=== PATIENT | female | born 1985 | race Caucasian/White ===

== ENCOUNTER 2024-01-05 17:05 | Emergency (ER) | payer OTHER, MEDICAID, SELFPAY ==
--- NOTE | 2024-01-05 17:07 | ED.DENTAL ---
HPI - Dental/Oral General Chief complaint: Dental/Oral Stated complaint: Dental/Right Eye Pain Time Seen by Provider: 01/05/24 17:06 Source: patient Mode of arrival: ambulatory Limitations: no limitations History of Present Illness HPI Narrative: Dorene is a 38-year-old female patient presenting to the clinic today with complaints of right upper gel dental pain. She reports she was eating last night and felt a sharp stabbing pain to the right upper maxilla around her wisdom to the and this caused her headache. Woke up this morning and has worsening of dental pain as well as swelling to the right cheek. Related Data Allergies Allergy/AdvReac Type Severity Reaction Status Date / Time No Known Allergies Allergy Mild Unverified 01/05/24 17:14 Review of Systems Review of Systems: Pertinent positives per HPI. Patient denies any fever, chills, rash, headache, visual changes, dizziness, cough, shortness of breath, chest pain, palpitations, nausea, vomiting, diarrhea, constipation, abdominal pain, or any urinary issues. PMFSH Comments At the time of my signature, I reviewed and agree with the nursing past medical, surgical, social, and family history. There is no relevant family history pertinent to the patient complaint. Exam Narrative: General: Well-developed, well nourished, in no apparent distress Head: Normocephalic, atraumatic Eyes: Pupils equally round and reactive to light bilaterally, EOM intact, sclera and conjunctive clear, no discharge, lids normal Ears: TMs intact and clear, ear canals clear, no drainage, grossly hearing normal. Nose: Nares patent, no discharge, no inflammation, no sinus tenderness. Mouth: Oral pharynx without lesions or masses, poor dentition, MMM. Inflamed right upper decayed wisdom tooth with gingival swelling and tenderness to palpation. No palpable abscess at this time however there is significant swelling to the cheek Neck: Supple, trachea midline, no enlargement of anterior or posterior cervical nodes, no thyroid masses or goiter palpable. Cardio: Regular rate and rhythm, s1 and s2 normal, no murmur appreciated. Resp: Clear to auscultation bilaterally, no rhonchi, rales, wheezing or rubs Course Course Emergency Course: Portions of this record may have been created with voice recognition software. Level of Care: Express Care Visit Vital Signs Vital signs: Vital Signs Temperature 36.6 C 01/05/24 17:14 Pulse Rate 83 01/05/24 17:14 Respiratory Rate 19 01/05/24 17:14 Blood Pressure 187/108 H 01/05/24 17:14 Pulse Oximetry 100 01/05/24 17:14 Oxygen Delivery Room Air 01/05/24 17:14 Temperature 36.6 C 01/05/24 17:14 Pulse Rate 83 01/05/24 17:14 Respiratory Rate 19 01/05/24 17:14 Blood Pressure 187/108 H 01/05/24 17:14 Pulse Oximetry 100 01/05/24 17:14 Oxygen Delivery Room Air 01/05/24 17:14 Vital signs reviewed MDM - Dental/Oral MDM Narrative Medical decision making narrative: At the time of visit patient is resting comfortably on the exam table. Patient appears to be nontoxic. Medications given: Rocephin 1 g IM with lidocaine given in the clinic today Plan: I suspect patient has a dental infection-possible early abscess. Rocephin 1 g IM given in the clinic today. Will place on Augmentin. Supportive measures were discussed with the patient and they voiced understanding discharge instructions and agrees to treatment plan. Return precautions reviewed Differential Diagnosis Differential diagnosis: Likely gingival abscess, dental caries, toothache, dental abscess, fracture of tooth and aphthous ulcer Discharge Plan Discharge Clinical Impression: Dental infection Patient Disposition: Home, Self-Care Condition: Stable Instructions: Antibiotic Form, Dental Abscess (ED) Additional Instructions: Rocephin 1 g IM given in the clinic today Take Augmentin as prescribed Take Tylenol/ibuprofen as needed for pain Apply cool compresses or warm compress to the affected area to help alleviate pain May apply Orajel to the affected area to help alleviate pain Follow-up with your dentist as soon as possible Prescriptions: New amoxicillin-pot clavulanate 875-125 mg tablet 1 tablet PO Q12H 10 Days Qty: 20 0RF Follow-up/Referrals: UNKNOWN,DOCTOR [Non-Staff] - Time of Disposition: 17:22 Quality NIHSS Nursing Documentation ED NIHSS nursing documentation: reviewed/agree
[2024-01-05 17:14] VITALS: BP 187/108; PULSE 83; RESP 19; TEMP 36.6; O2SAT 100
[2024-01-05] MEDS: cefTRIAXone 1 GM, LIDOCAINE HCL 1% LOCAL INJ 2.1 ML IM (17:25)
== END 2024-01-05 17:40 | disposition home or self-care (01) ==
PROVIDERS: Emergency Provider Nurse Practitioner Family
DX: K04.7 Periapical abscess without sinus (principal)
CPT/HCPCS: 96372; 99203; G0463; J0696; J2003